=== PATIENT | male | born 1955 | race Caucasian/White ===

== ENCOUNTER 2020-10-10 16:34 | Emergency (ER) | payer MEDICARE, OTHER ==
--- NOTE | 2020-10-10 17:46 | EDM.PDOC ---
ED HPI GENERAL MEDICAL PROBLEM - General Stated Complaint: FEEDING TUBE ISSUES Time Seen by Provider: 10/10/20 17:32 Source of Information: Reports: Patient - History of Present Illness INITIAL COMMENTS - FREE TEXT/NARRATIVE: Ye is a 65 year old male with significant history for anoxic brain injury duet o choking episode with resulting in swallowing difficulty with liquids and foods. Ye has spastic movements and catches his G tube at times, which he pulled out on error today about 2 hours ago. Ye needs to be placed in a lift to be brought down stairs at home. Unfortunately, Ye fell resulting in bilateral knee abrasions without more significant injury or fall. Ye present with his whom is a very good historian and nurse healthcare manager. Ye is able to communicate needs but voice stuttering at time makes him more difficulty to understanding. 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 - Related Data Allergies Allergy/AdvReac Type Severity Reaction Status Date / Time No Known Allergies Allergy Verified 10/10/20 17:43 Home Meds: Home Meds FLUoxetine HCl [Fluoxetine HCl] 1 tab PO DAILY 10/10/20 [History] Gabapentin [Neurontin] 1 tab PO DAILY 10/10/20 [History] Tamsulosin [Flomax] 1 tab PO DAILY 10/10/20 [History] clonazePAM [Clonazepam] 1 tab PO DAILY 10/10/20 [History] levETIRAcetam [Levetiracetam] 3 tab PO TID 10/10/20 [History] ED ROS GENERAL - Review of Systems Review Of Systems: Comprehensive ROS is negative, except as noted in HPI. (with assistance of ) ED EXAM, GI/ABD - Physical Exam Exam: See Below Exam Limited By: Physical Impairment General Appearance: Alert, WD/WN, No Apparent Distress Eyes: Bilateral: Normal Appearance Ears: Hearing Grossly Normal Nose: Normal Inspection Throat/Mouth: Normal Voice (at baseline), No Airway Compromise Neck: Normal Inspection Respiratory/Chest: No Respiratory Distress Cardiovascular: Normal Peripheral Pulses GI/Abdominal Exam: Normal Bowel Sounds, Other (G tube opening noted in left mid upper abdomen with surround granuloma and sligth skin breakdown. brought g tube with to re-insert. Ye receives tube feeding for caloric needs. ) Extremities: Normal Inspection, Normal Range of Motion Neurological: Alert, Oriented, CN II-XII Intact, Normal Cognition Psychiatric: Normal Affect, Normal Mood Skin Exam: Warm, Dry, Intact, Normal Color ED ABDOMINAL/GI PROCEDURES - Additional/Other Procedure(s) Procedure(s) (Free Text): G tube replaced by nursing staff with stand by assistance. Departure - Departure Time of Disposition: 17:50 Disposition: Home, Self-Care 01 Clinical Impression: History of gastrostomy tube placement, Gastrojejunostomy tube dislodgement - Discharge Information Referrals: Ric Carvalho MD [Primary Care Provider] - Forms: ED Department Discharge Additional Instructions: Continue current tube feedings and g tube care. Granuloma noted aroudn g tube site. A&D ointment recommended for dermatitis due to chronic wet area and skin breakdown prevention.
== END 2020-10-10 18:07 | disposition home or self-care (01) ==
LOC: JP.ED 16:34
DX: K94.23 Gastrostomy malfunction (principal)
CPT/HCPCS: 43762; 99283-25

== ENCOUNTER 2021-01-12 10:56 | Emergency (ER) | payer MEDICARE, OTHER ==
--- NOTE | 2021-01-12 14:47 | EDM.PDOC ---
ED HPI GENERAL MEDICAL PROBLEM - General Chief Complaint: Gastrointestinal Problem Stated Complaint: FEEDING TUBE WONT STAY IN Time Seen by Provider: 01/12/21 14:03 Source of Information: Reports: Patient, Family, RN Notes Reviewed History Limitations: Reports: No Limitations - History of Present Illness INITIAL COMMENTS - FREE TEXT/NARRATIVE: 65-year-old gentleman presents emergency department day with problems with his feeding tube that has fallen out multiple times what happened since the balloon loses air over time. They do not have replacement is 18 [place] Abdomen Pain Score (Numeric/FACES): 5 - Related Data Allergies Allergy/AdvReac Type Severity Reaction Status Date / Time latex Allergy Rash Verified 01/12/21 13:57 Home Meds: Home Meds FLUoxetine HCl [Fluoxetine HCl] 20 mg PO DAILY 10/10/20 [History] Tamsulosin [Flomax] 0.4 mg PO DAILY 10/10/20 [History] clonazePAM [Clonazepam] 0.5 mg PO ASDIRECTED 10/10/20 [History] levETIRAcetam [Levetiracetam] 3 tab PO BID 10/10/20 [History] Perampanel [Fycompa] 2 mg PO BEDTIME 01/12/21 [History] Past Medical History HEENT History: Reports: Cataract, Impaired Vision Cardiovascular History: Reports: Prior Cardiac Arrest Respiratory History: Reports: Asthma, Intubation, Previous Genitourinary History: Reports: BPH Neurological History: Reports: Brain Injury, Seizure, Other (See Below) Other Neuro History: hypoxic brain injury, vinny gilbert syndrome Psychiatric History: Reports: ADHD, Anxiety, Depression Oncologic (Cancer) History: Reports: Squamous Cell Carcinoma, Other (See Below) Other Oncologic History: head and neck caner - Past Surgical History HEENT Surgical History: Reports: Adenoidectomy, Tonsillectomy, Other (See Below) Other HEENT Surgeries/Procedures: gum surgery, base of tongue surgery d/t cancer. GI Surgical History: Reports: Other (See Below) Other GI Surgeries/Procedures: feeding tube Social & Family History - Tobacco Use Tobacco Use Status *Q: Never Tobacco User - Caffeine Use Caffeine Use: Reports: Coffee - Alcohol Use Days Per Week of Alcohol Use: 5 Number of Drinks Per Day: 2 Total Drinks Per Week: 10 - Recreational Drug Use Recreational Drug Use: No ED ROS GENERAL - Review of Systems Review Of Systems: See Below Constitutional: Reports: No Symptoms GI/Abdominal: Reports: Other (Feeding tube keeps falling out) ED EXAM, GI/ABD - Physical Exam Exam: See Below Text/Narrative:: Examination abdomen is soft and nontender I did give a gentle traction on the feeding tube came right out the balloon was deflated new 18 [place] is replaced the balloon was tested prior to placement it showed good inflation the balloon appeared to be tight balloon was then deflated feeding tube was placed 8-1/2 mL of air was placed in the balloon, a spare 18 [place] feeding tube was provided to them as well Exam Limited By: No Limitations General Appearance: Alert, WD/WN, No Apparent Distress Course - Vital Signs Last Recorded V/S: Last Vital Signs Temp 97.7 F 01/12/21 13:32 Pulse 63 01/12/21 13:32 Resp 16 01/12/21 13:32 BP 155/84 H 01/12/21 13:32 Pulse Ox 100 01/12/21 13:32 Departure - Departure Time of Disposition: 14:47 Disposition: Home, Self-Care 01 Condition: Fair Clinical Impression: Gastrojejunostomy tube dislodgement - Discharge Information Referrals: Ric Carvalho MD [Primary Care Provider] - Additional Instructions: Keep regular follow-up appointments with primary care, call return to the emergency department worsening of symptoms Sepsis Event Note (ED) - Evaluation Sepsis Screening Result: No Definite Risk - Focused Exam Vital Signs: Vital Signs Temp Pulse Resp BP Pulse Ox 01/12/21 13:32 97.7 F 63 16 155/84 H 100 - Assessment/Plan Plan: Assessment Acuity = acute Site and laterality = feeding tube dislodgment Etiology = probable failure of the balloon on the feeding tube Manifestations = none Location of injury = Home Lab values = none Plan Keep regular follow-up appointments with primary care as needed This note was dictated using S[employer]ient voice recognition software please call with any questions on syntax or grammar.
== END 2021-01-12 15:41 | disposition home or self-care (01) ==
LOC: JP.ED 10:56
DX: K94.23 Gastrostomy malfunction (principal); N40.0 Benign prostatic hyperplasia without lower urinary tract symptoms; Z91.040 Latex allergy status; Z79.899 Other long term (current) drug therapy
CPT/HCPCS: 43762; 99282-25

== ENCOUNTER 2021-01-29 08:01 | Emergency (ER) | payer MEDICARE, OTHER ==
--- NOTE | 2021-01-29 09:09 | EDM.PDOC ---
ED HPI GENERAL MEDICAL PROBLEM - General Chief Complaint: Gastrointestinal Problem Stated Complaint: FEEDING TUBE CAME OUT Time Seen by Provider: 01/29/21 08:40 Source of Information: Reports: Patient, Family History Limitations: Reports: No Limitations - History of Present Illness INITIAL COMMENTS - FREE TEXT/NARRATIVE: Ye is a 65-year-old male presenting to the ED for replacement of his PEG tube. Patient has a history of an anoxic brain injury secondary to choking resulting in his inability to swallow properly. This necessitated the placement of a PEG tube. Patient reportedly woke up this morning to find that the PEG tube had become dislodged. The family tried to replace the tube with a new one but were unable to get it in prompting them to bring him to the ED for evaluation. The patient recently had the PEG tube replaced here on January 12 for similar event. - Related Data Allergies Allergy/AdvReac Type Severity Reaction Status Date / Time latex Allergy Rash Verified 01/29/21 08:30 Home Meds: Home Meds FLUoxetine HCl [Fluoxetine HCl] 20 mg PO DAILY 10/10/20 [History] Tamsulosin [Flomax] 0.4 mg PO DAILY 10/10/20 [History] clonazePAM [Clonazepam] 0.5 mg PO ASDIRECTED 10/10/20 [History] levETIRAcetam [Levetiracetam] 3 tab PO BID 10/10/20 [History] Perampanel [Fycompa] 2 mg PO BEDTIME 01/12/21 [History] Past Medical History HEENT History: Reports: Cataract, Impaired Vision Cardiovascular History: Reports: Prior Cardiac Arrest Respiratory History: Reports: Asthma, Intubation, Previous Genitourinary History: Reports: BPH Neurological History: Reports: Brain Injury, Seizure, Other (See Below) Other Neuro History: hypoxic brain injury, vinny gilbert syndrome Psychiatric History: Reports: ADHD, Anxiety, Depression Oncologic (Cancer) History: Reports: Squamous Cell Carcinoma, Other (See Below) Other Oncologic History: head and neck caner - Past Surgical History HEENT Surgical History: Reports: Adenoidectomy, Cataract Surgery, Tonsillectomy, Other (See Below) Other HEENT Surgeries/Procedures: gum surgery, base of tongue surgery d/t cancer. GI Surgical History: Reports: Other (See Below) Other GI Surgeries/Procedures: feeding tube Social & Family History - Tobacco Use Tobacco Use Status *Q: Never Tobacco User - Caffeine Use Caffeine Use: Reports: Coffee - Recreational Drug Use Recreational Drug Use: No ED ROS GENERAL - Review of Systems Review Of Systems: See Below GI/Abdominal: Reports: Other (Feeding tube has come out necessitating the placement of a new tube.) ED EXAM, GI/ABD - Physical Exam Exam: See Below GI/Abdominal Exam: Other (The ostomy for the PEG tube is heavily filled with granulation tissue and is very tight. Was a small amount of bleeding from the granulation tissue on presentation.) S/P Cath Insertion - Suprapubic Catheter Insertion Performed by:: Chilango Mary Course - Vital Signs Last Recorded V/S: Last Vital Signs Temp 36.6 C 01/29/21 08:28 Pulse 70 01/29/21 08:28 Resp 20 01/29/21 08:28 BP 134/79 01/29/21 08:28 Pulse Ox 97 01/29/21 08:28 - Re-Assessments/Exams Free Text/Narrative Re-Assessment/Exam: 01/29/21 09:09 Ye presents with his PEG tube being dislodged requiring a new tube to be inserted to continue with feedings. He presents with his with a new tube inbox. Indications include patient has a hypoxic brain injury and is unable to swallow so all of his nutrition and medication comes through PEG tube. Ischial assessment shows a significant amount of granulation tissue around the ostomy for the PEG tube. There is some bleeding from the granulation tissue and the opening is quite tight. Initial attempt with just using lubricant was unsuccessful as there was significant swelling causing the tube to fold over on itself. A curved forcep was entered through the ostomy and opened to try to dilate the ostomy. The second attempt was performed using a stiff urethral catheter guidewire and we were able to successfully place the PEG tube which was then insufflated with 10 cc of saline expanded the balloon and then the hub was lowered taking out the slack. A dressing was then applied with split 4 x 4's and the device was secured. No complications during the procedure. Departure - Departure Time of Disposition: :10 Disposition: Home, Self-Care 01 Clinical Impression: S/P percutaneous endoscopic gastrostomy (PEG) tube placement - Discharge Information Instructions: PEG Tube Home Guide, [place] Referrals: Ric Carvalho MD [Primary Care Provider] - Care Plan Goals: Continue with management of the PEG tube as before. Contact us if you have any issues. Have a great day. Sepsis Event Note (ED) - Evaluation Sepsis Screening Result: No Definite Risk - Focused Exam Vital Signs: Vital Signs Temp Pulse Resp BP Pulse Ox 01/29/21 08:28 36.6 C 70 20 134/79 97 - Problem List & Annotations (1) S/P percutaneous endoscopic gastrostomy (PEG) tube placement SNOMED Code(s): 101541578 Code(s): Z93.1 - GASTROSTOMY STATUS Status: Acute Priority: Medium Current Visit: Yes - Problem List Review Problem List Initiated/Reviewed/Updated: Yes
== END 2021-01-29 09:30 | disposition home or self-care (01) ==
LOC: JP.ED 08:01
DX: Z93.1 Gastrostomy status (principal); J45.909 Unspecified asthma, uncomplicated; N40.0 Benign prostatic hyperplasia without lower urinary tract symptoms; Z91.040 Latex allergy status; Z79.899 Other long term (current) drug therapy
CPT/HCPCS: 43762; 99282-25

== ENCOUNTER 2021-07-08 09:07 | Emergency (ER) | payer MEDICARE, OTHER | END 2021-07-08 11:05 | disposition home or self-care (01) | LOC: JP.ED 09:07 | DX: K94.23 Gastrostomy malfunction (principal); Z91.040 Latex allergy status; Z79.899 Other long term (current) drug therapy | CPT/HCPCS: 43752; 99281; 99282-25 ==

== ENCOUNTER 2021-08-07 18:10 | Emergency (ER) | payer MEDICARE, OTHER | END 2021-08-07 20:33 | disposition home or self-care (01) | LOC: JP.ED 18:10 | DX: S00.03XA Contusion of scalp, initial encounter (principal); G25.3 Myoclonus; Z91.040 Latex allergy status; Z86.69 Personal history of other diseases of the nervous system and sense organs; W18.09XA Striking against other object with subsequent fall, initial encounter | CPT/HCPCS: 36415; 70450; 80053; 85025; 85610; 85730; 99284-25 ==

== ENCOUNTER 2021-10-12 18:43 | Emergency (ER) | payer MEDICARE, OTHER | END 2021-10-12 20:43 | disposition home or self-care (01) | LOC: JP.ED 18:43 | DX: K94.23 Gastrostomy malfunction (principal); Z91.040 Latex allergy status; Z79.82 Long term (current) use of aspirin; Z20.822 Contact with and (suspected) exposure to COVID-19 | CPT/HCPCS: 36415; 85025; 99283; U0002 ==

== ENCOUNTER 2022-01-01 09:58 | Emergency (ER) | payer MEDICARE, OTHER ==
[2022-01-01] MEDS: prednisoLONE 15 MG/5 ML Soln UD Cup GTUBE ONE (11:01)
== END 2022-01-01 12:03 | disposition home or self-care (01) ==
LOC: JP.ED 09:58
DX: J45.901 Unspecified asthma with (acute) exacerbation (principal); G25.3 Myoclonus; Z91.030 Bee allergy status; Z91.040 Latex allergy status; Z79.899 Other long term (current) drug therapy; Z87.891 Personal history of nicotine dependence
CPT/HCPCS: 36415; 71046; 80048; 84145; 85025; 99285; A9270

== ENCOUNTER 2022-04-26 09:51 | Emergency (ER) | payer MEDICARE, OTHER ==
[2022-04-26] MEDS ORDERED: Lidocaine 1% with EPINEPHrine 1:100,000 50 ML MDV SUBCUT STA (11:47)
[2022-04-26] MEDS ORDERED: Bacitracin Oint 1 GM U/D Packet TOP ONE (11:47)
[2022-04-26] MEDS ORDERED: Diphtheria,Pertussis(Acell),Tetanus Vaccine 0.5 ML Syringe IM ONE (11:57)
== END 2022-04-26 12:40 | disposition home or self-care (01) ==
LOC: JP.ED 09:51
DX: S01.01XA Laceration without foreign body of scalp, initial encounter (principal); J45.909 Unspecified asthma, uncomplicated; Z91.040 Latex allergy status; Z91.030 Bee allergy status; Z87.891 Personal history of nicotine dependence; Z23 Encounter for immunization
CPT/HCPCS: 12001; 90471; 90715; 99281; 99282